=== PATIENT | male | born 1955 | race African-American/Black ===

== ENCOUNTER 2017-04-14 12:59 | Emergency (ER) | payer SELFPAY ==
[~2017-04-14] VITALS: Ht 180.3 cm; Wt 111.0 kg
[2017-04-14] MEDS ORDERED: OLANZAPINE 10 MG/VIAL IM STA (13:12)
[2017-04-14] MEDS ORDERED: LORAZEPAM 2MG/ML CPJ IM STA (13:12)
[2017-04-14] MEDS ORDERED: DIPHENHYDRAMINE 50MG/ML VIAL IM STA (13:12)
[2017-04-14 15:06] LABS: CLARITY URINE CLEAR (CLEAR); COLOR URINE YELLOW (YELLOW); KETONES URINE NEGATIVE (NEGATIVE); LEUKOCYTE ESTERASE URINE TRACE (NEGATIVE); NITRITE URINE NEGATIVE (NEGATIVE); OCCULT BLOOD URINE 1+ (NEGATIVE); PH URINE 5.5 (4.5-8.0); PROTEIN URINE NEGATIVE (NEGATIVE); SPECIFIC GRAVITY URINE 1.012 (1.005-1.030); UROBILINOGEN URINE 0.2 E.U./dL (0.2-1.0)
[2017-04-14 15:45] LABS: *BARBITURATES SCREEN URINE NEGATIVE (NEGATIVE); *BENZODIAZEPINES SCREEN URINE NEGATIVE (NEGATIVE); *COCAINE SCREEN URINE NEGATIVE (NEGATIVE); CANNABINOID URINE SCREEN NEGATIVE (NEGATIVE); METHADONE URINE SCREEN PRESUMTIVE POSITIVE (NEGATIVE); OPIATES URINE SCREEN NEGATIVE (NEGATIVE); PHENCYCLIDINE URINE SCREEN NEGATIVE (NEGATIVE)
[2017-04-14 15:46] LABS: *AMPHETAMINES SCREEN URINE NEGATIVE (NEGATIVE)
[2017-04-14 15:49] LABS: BASOPHILS % 0.8 % (0.0-2.0); HEMATOCRIT. 41.2 % (42.0-52.0); HEMOGLOBIN. 13.1 g/dL (14.0-18.0); LYMPHOCYTES % 25.6 % (20.0-50.0); MEAN CORPUSCULAR HEMOGLOBIN 28.5 pg (28.0-32.0); MEAN CORPUSCULAR VOLUME 89.2 fL (80.0-94.0); MEAN PLATELET VOLUME 7.8 fl (7.4-10.4); MONOCYTES % 3.7 % (2.0-8.0); NEUTROPHILS % 67.9 % (40.0-76.0); PLATELET 229 x1000/uL (130-400); RED BLOOD CELL COUNT 4.61 mill/uL (4.7-6.1); RED CELL DISTRIBUTION WIDTH 15.2 % (11.6-14.6)
[2017-04-14 16:05] LABS: CHLORIDE 107 mEq/L (98-107)
[2017-04-14 16:09] LABS: ETHANOL BLOOD 354 mg/dL
[2017-04-14] MEDS ORDERED: SODIUM CHLORIDE 0.9% 1,000 ML IV ONE (17:49)
[2017-04-15 06:12] VITALS: BP 158/98
== END 2017-04-15 07:04 | disposition home or self-care (01) ==
LOC: ER 13:04
DX: F10.129 Alcohol abuse with intoxication, unspecified (principal); F11.10 Opioid abuse, uncomplicated; E87.0 Hyperosmolality and hypernatremia; Y90.8 Blood alcohol level of 240 mg/100 ml or more
CPT/HCPCS: 36415; 70450; 80053; 80305; 81003; 82962; 85025; 96372; 99285; G0482; J1200; J2060; J3490; J7030; Z7610